=== PATIENT | male | born 2005 | race Caucasian/White ===

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

== ENCOUNTER 2024-08-21 13:39 | Emergency (ER) | payer OTHER ==
[~2024-08-21] VITALS: Wt 77.1 kg
[2024-08-21] MEDS ORDERED: PREDNISONE20 M1 PO (14:40)
[2024-08-21] MEDS ORDERED: methylPREDNISolone sod succ 125 MG VIAL IM ONE (14:45)
[2024-08-21] MEDS ORDERED: Water, Sterile 10 ML VIAL ONE (15:23)
== END 2024-08-21 15:26 | disposition home or self-care (01) ==
LOC: ED 13:39
DX: L23.7 Allergic contact dermatitis due to plants, except food (principal); Z98.890 Other specified postprocedural states

== ENCOUNTER 2024-11-14 11:32 | Emergency (ER) | payer OTHER ==
[~2024-11-14] VITALS: Ht 165.1 cm; Wt 77.1 kg
[~2024-11-14 11:32] MED LIST changes: +PREDNISONE20 M1 PO
[2024-11-14] MEDS ORDERED: PREDNISONE10 M1 PO (12:04)
[2024-11-14] MEDS ORDERED: Water, Sterile 10 ML VIAL ONE (12:12)
== END 2024-11-14 12:16 | disposition home or self-care (01) ==
LOC: ED 11:32
DX: L25.5 Unspecified contact dermatitis due to plants, except food (principal); Z79.899 Other long term (current) drug therapy; Z98.890 Other specified postprocedural states